=== PATIENT | male | born 1965 | race Caucasian/White ===

== ENCOUNTER 2019-07-28 12:04 | Outpatient (CLI) | payer MEDICARE, MEDICAID, SELFPAY ==
--- NOTE | 2019-07-28 12:18 | USCV_ITS ---
Christiano Loo Age: 54 Gender: M : 1965 Exam Date: 07/28/2019 12:41 Ordering Phys: Abril Perry Technologist: Jefry Paz Exam Location: [facility] [place] Indication: Bradycardia Rhythm: Sinus Patient History: Chest pain, Hypertension, Hyperlipidemia Cardiac Medications: Aspirin, Non-statin lipid lowering agent(s), ELENA Inhibitor Medications in past 24 hours: NONE Contrast: Stress Results Protocol: Obdulio Total dose(mL): Exercise Duration (min:sec): 09:00 METS: 10.2 Resting HR: 49 Resting BP: 126 / 81 Peak HR: 151 Peak BP: 170 / 81 Max Predicted HR: 165 92 % Max Predicted HR Target HR: 140 Double Product: 52000 Stress Summary: The patient's target heart rate was achieved The hemodynamic response to exercise was normal BP Response: Normal Reason for Termination: Test terminated after reaching target heart rate (85% max predicted) Cardiac Symptoms: Short of Breath ECG Analysis Resting ECG: Stress ECG: Arrhythmia: MEASUREMENTS (Male/Female) Normal Values FINDINGS Baseline at rest: Normal left ventricular size and ejection fraction, no wall motion abnormality at the baseline. At peak exercise: No wall motion abnormality noted. Augmentation of cavity was good. Recovery: No significant wall motion abnormality noted CONCLUSIONS Echocardiographic portion of the stress test is not suggestive of ischemia. EKG segment will be recommended separately. Law Mackey MD (Electronically Signed) Final Date: 28 July 2019 19:24 S
[2019-07-28 12:32] VITALS: BMI 32.1
--- NOTE | 2019-07-28 12:36 | ECG_ITS ---
NAME OF STUDY: TREADMILL STRESS ECHOCARDIOGRAM INDICATION: Bradycardia EXERCISE DATA: The patient was exercised by Obdulio protocol. Baseline heart rate was 49 beats per minute. Baseline blood pressure was 126/81 millimeters of mercury. Target heart rate was 165 beats per minute. Maximum heart rate achieved was 151, which was 91 % of the target heart rate. Maximum blood pressure was 170/81 millimeters of mercury. Total exercise time was 9 minutes. Maximum METs achieved was 10.2, maximum VO2 was 35.7. The reason for ending the test was maximum effort achieved. The patient complained of shortness of during the stress test, which then resolved at the end of the test. ELECTROCARDIOGRAM: BASELINE: Sinus bradycardia, normal axis, no significant ST-T changes at the baseline noted. EXERCISE: At the peak exercise level, No significant ST-T changes suggestive of ischemia noted. RECOVERY: During the recovery period, heart rate dropped appropriately. No significant ST-T changes in the recovery suggestive of ischemia noted. CONCLUSION: 1. Exercise capacity good. 2. Heart rate response was appropriate. 3. Blood pressure response was appropriate. 4. Symptoms not suggestive of ischemia. 5. Electrocardiogram portion of the stress test was not suggestive of ischemia. 6. Nuclear scan will be documented separately. Electronically Signed On 07-28-2019 14:21:06 STOCK LIFTER by Law Mackey M.D. [email or web address]
[2019-07-28 13:34] VITALS: BP 113/73; PULSE 65
== END 2019-07-28 12:05 | disposition home or self-care (01) ==
LOC: CDL 12:12
PROVIDERS: Family Provider Nurse Practitioner; PCP Nurse Practitioner Family; Visit Provider Internal Medicine Cardiovascular Disease
DX: R00.1 Bradycardia, unspecified (principal)
CPT/HCPCS: 93017; 93350

== ENCOUNTER 2019-11-28 07:00 | Emergency (ER) | payer MEDICARE, MEDICAID, SELFPAY ==
[2019-11-28 07:02] VITALS: BP 114/60; PULSE 61; RESP 18; TEMP 36.7; O2SAT 96; BMI 31.2
[2019-11-28 07:09] VITALS: BP 114/57; PULSE 67; RESP 16; O2SAT 96
--- NOTE | 2019-11-28 07:17 | W.ED.CHESTPA ---
HPI - Chest Pain General: Chief Complaint: Chest Pain Stated Complaint: CP/dizzy/confusion Time Seen by Provider: 11/28/19 07:03 History of Present Illness: HPI narrative: 54-year-old male resents the emergency room complaining of lightheadedness dizziness chest pain and palpitations. 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 He states he really did not get any significant relief after he ceased working. But eventually after about 15 to 20 minutes it resolved spontaneously. At the time he is seen he has no further chest pain and the dizziness has resolved as well. He has noticed over the last week he is a little bit more short of breath when he exerts himself but had not had any chest pain or dizziness during the week. He denies any nausea vomiting or diarrhea or any radiation of the chest pain to his back neck jaw or arms or shoulders. He localizes the chest pain to the center left of his chest. Patient initially told me he had not had any kind of cardiac evaluation in the past however when I reviewed his old chart I find he had a stress test in July and has had a Holter monitor for bradycardia as well. Stress echo done on 07/28/2019 was read as normal. Holter monitor done in September of this year showed frequent PVCs. Associated symptoms: Deny abdominal pain, dyspnea, fever(s), nausea or vomiting Review of Systems Const: Denies: fever(s), chills, body aches, change in appetite, fatigue or malaise ENMT: Denies: throat pain, ear or mastoid pain, nasal discharge or nasal congestion Card: Denies: chest pain, edema, dyspnea on exertion or orthopnea Resp: Denies: dyspnea, productive cough or non-productive cough GI: Denies: abdominal pain, nausea, vomiting, hematemesis, coffee ground emesis, diarrhea, constipation, bloating, hematochezia or melena : Denies: flank pain, dysuria, urinary frequency or urinary urgency Skin/Breast: Denies: rash or pruritus PFS ED PFSH: Medical History Benign essential HTN Bradycardia Fatigue GERD (gastroesophageal reflux disease) Mixed hyperlipidemia Obesity (BMI 30.0-34.9) Palpitations Restless leg syndrome Sleep apnea, obstructive Surgical History Hx of cholecystectomy Family History Denies family history of Anesthesia complication Bleeding disorder Social History Smoking and tobacco status: current some day smoker Alcohol intake: current Alcohol intake frequency: 0-2 Drinks per Day Physical Exam Const: COMMON NORMALS: no acute distress GENERAL APPEARANCE: cooperative and comfortable ORIENTATION/CONSCIOUSNESS: Yes awake, Yes oriented to person, Yes oriented to place and Yes oriented to time HENMT: COMMON NORMALS: normocephalic, atraumatic, hearing grossly normal bilaterally, external ears normal, EAC's normal, TM's normal bilaterally, Normal nasal mucous membranes and turbinates present, moist oral mucous membranes and oropharynx normal HEAD & SCALP: normocephalic and atraumatic NOSE: Normal nasal mucous membranes and turbinates present EXTERNAL EAR: Yes external ears normal EXTERNAL AUDITORY CANAL: EAC's normal TYMPANIC MEMBRANE: TM's normal bilaterally Eye: COMMON NORMALS: Equal, round and reactive pupils present, EOMs intact bilaterally, conjunctivae normal and no scleral icterus CONJUNCTIVA: Yes conjunctivae normal PUPIL: Yes Equal, round and reactive pupils present Neck/C-Spine: COMMON NORMALS: full ROM, no lymphadenopathy, supple and no JVD Lymph: LYMPHATIC: no lymphadenopathy noted and no lymphedema noted Resp: COMMON NORMALS: normal respiratory effort, No retractions, No use of accessory muscles and clear to auscultation bilaterally AUSCULTATION: clear to auscultation bilaterally Cardio: COMMON NORMALS: no JVD, regular rate, regular rhythm and No murmurs present (Cardio) RATE: regular rate RHYTHM: regular rhythm GI: COMMON NORMALS: Soft to palpation and No hepatosplenomegaly present AUSCULTATION: Yes normoactive bowel sounds PALPATION: Yes Soft to palpation, No Tenderness to palpation present (GI), No Guarding due to palpation present (GI) and Yes No hepatosplenomegaly present Extremity: COMMON NORMALS: normal to inspection, capillary refill normal, no clubbing, cyanosis or edema, no calf tenderness and no pedal edema Neuro: SENSORIUM/ORIENTATION: Yes oriented to person, Yes oriented to place and Yes oriented to time Skin: COMMON NORMALS: no rashes or lesions noted GENERAL SKIN EXAM: no rashes or lesions noted Course Vital Signs: Vital signs: Vital Signs Temperature 98.1 F 11/28/19 07:02 Pulse Rate 63 11/28/19 10:43 Respiratory Rate 18 11/28/19 10:43 Blood Pressure 101/59 11/28/19 10:43 Pulse Oximetry 98 11/28/19 10:43 MDM - Chest Pain MDM Narrative: Medical decision making narrative: Troponin is negative will discharge home on PPI has any recurrent symptoms recheck follow-up with your doctor within 1 week. Also need to review blood pressure and blood pressure meds with your physician on follow-up discussed this with the patient Lab Data: Labs: Lab Results 11/28/19 11/28/19 11/28/19 Range/Units 07:20 07:20 07:20 WBC 5.9 (4.0-10.0) 10^3/ uL RBC 4.40 (4.1-5.3) 10^6/u L Hgb 13.5 (11.7-16.6) g/dL Hct 40.2 L (42.0-52.0) % MCV 91.4 (80-94) fL MCH 30.7 (28.0-34.0) pg MCHC 33.6 (30.0-36.0) g/dL RDW 12.3 (12.1-15.1) % Plt Count 272 (130-400) 10^3/c mm MPV 10.1 (7.4-10.4) fL Neut % (Auto) 51.8 % Lymph % (Auto) 32.5 % [place] % (Auto) 8.5 % Eos % (Auto) 5.9 % Baso % (Auto) 1.0 % Neut # (Auto) 3.1 (1.8-7.7) 10^3/u L Lymph # (Auto) 1.9 (0.8-4.8) 10^3/u L [place] # (Auto) 0.5 (0.2-0.9) 10^3/u L Eos # (Auto) 0.4 (0.0-0.8) 10^3/u L Baso # (Auto) 0.1 (0.0-0.1) 10^3/u L Nucleated RBC % (a uto) 0 % Nucleated RBCs # 0.0 /100WBC Sodium 139 (136-145) mmol/L Potassium 3.9 (3.5-5.1) mmol/L Chloride 101 (98-107) mmol/L Carbon Dioxide 22 (22-29) mmol/L Anion Gap 19.9 H (5-19) BUN 21 H (6-20) mg/dL Creatinine 1.3 H (0.7-1.2) mg/dL GFR Calculation 57.3 L (90-130) mL/min Glucose 101 (65-115) mg/dL Calculated Osmolal ity 285 (285-295) mOsm/k g Calcium 10.6 H (8.5-10.5) mg/dL Total Bilirubin 0.3 (0.15-1.2) mg/dL AST 19 (0-40) U/L ALT 13 (0-41) U/L Alkaline Phosphata se 59 (40-130) IU/L Troponin T Baselin e 6 (0-15) ng/mL Troponin T 120 Min srinivas (0-15) ng/mL Delta Troponin T (0-10) ABS# Total Protein 7.5 (6.6-8.7) g/dL Albumin 4.4 (3.5-5.2) g/dL Globulin 3.1 (1.3-4.6) g/dL Lipase 46 (13-60) U/L / Range/Units 09:26 WBC (4.0-10.0) 10^3/ uL RBC (4.1-5.3) 10^6/u L Hgb (11.7-16.6) g/dL Hct (42.0-52.0) % MCV (80-94) fL MCH (28.0-34.0) pg MCHC (30.0-36.0) g/dL RDW (12.1-15.1) % Plt Count (130-400) 10^3/c mm MPV (7.4-10.4) fL Neut % (Auto) % Lymph % (Auto) % [place] % (Auto) % Eos % (Auto) % Baso % (Auto) % Neut # (Auto) (1.8-7.7) 10^3/u L Lymph # (Auto) (0.8-4.8) 10^3/u L [place] # (Auto) (0.2-0.9) 10^3/u L Eos # (Auto) (0.0-0.8) 10^3/u L Baso # (Auto) (0.0-0.1) 10^3/u L Nucleated RBC % (a uto) % Nucleated RBCs # /100WBC Sodium (136-145) mmol/L Potassium (3.5-5.1) mmol/L Chloride (98-107) mmol/L Carbon Dioxide (22-29) mmol/L Anion Gap (5-19) BUN (6-20) mg/dL Creatinine (0.7-1.2) mg/dL GFR Calculation (90-130) mL/min Glucose (65-115) mg/dL Calculated Osmolal ity (285-295) mOsm/k g Calcium (8.5-10.5) mg/dL Total Bilirubin (0.15-1.2) mg/dL AST (0-40) U/L ALT (0-41) U/L Alkaline Phosphata se (40-130) IU/L Troponin T Baselin e (0-15) ng/mL Troponin T 120 Min srinivas 6.00 (0-15) ng/mL Delta Troponin T 0 (0-10) ABS# Total Protein (6.6-8.7) g/dL Albumin (3.5-5.2) g/dL Globulin (1.3-4.6) g/dL Lipase (13-60) U/L Discharge Plan Discharge Patient Disposition: Home, Self-Care Clinical Impression: Atypical chest pain, Benign essential HTN Condition: Stable Prescriptions: Changed esomeprazole magnesium 40 mg capsule,delayed release(DR/EC) 40 mg PO BID 14 Days Qty: 28 RF: 0 No Action lisinopril 5 mg tablet 5 mg PO DAILY RF: 0 ibuprofen 800 mg tablet 800 mg PO Q8H PRN (Reason: pain) RF: 0 aspirin [Aspirin Low Dose] 81 mg tablet,delayed release (DR/EC) 81 mg PO DAILY RF: 0 diphenhydramine HCl 1 % cream See Rx Instructions .ROUTE .COMPLEX PRN (Reason: Itching) RF: 0 fenofibrate 160 mg tablet 160 mg PO DAILY RF: 0 tizanidine 4 mg capsule 4 mg PO BEDTIME PRN (Reason: Muscle Spasm) RF: 0 trazodone 50 mg tablet 100 mg PO BEDTIME RF: 0 cetirizine [Zyrtec] 10 mg tablet 10 mg PO DAILY RF: 0 Multiple Vitamins Tablet 1 tab PO DAILY RF: 0 baclofen 10 mg Tablet 10 mg PO TID RF: 0 ferrous sulfate 325 mg (65 mg iron) Tablet 325 mg PO DAILY RF: 0 gabapentin 300 mg Capsule 300 mg PO DAILY RF: 0 Discharge Orders: Discharge Order (Routine); Ordered 11/28/19 Ordered By: Rayshawn Jarrell Referrals: Lisbet Mcgill FNP [Primary Care Provider] - Discharge Diet: Advance as tolerated Discharge Activity: Limit activity as instructed Stand Alone Forms: Work/School Release Discharge Date/Time: 11/28/19 10:44 Coding Level of Care Code ED Assessment Specialist for Nory Fwd Exam Comprehensive
--- NOTE | 2019-11-28 07:26 | ECG_ITS ---
Measurements Intervals [place] Rate: 58 P: 46 NE: 179 QRS: 43 QRSD: 89 T: 43 QT: 407 QTc: 403 SINUS BRADYCARDIA Compared to ECG 06/25/2016 23:03:29 No significant changes Electronically Signed On 11-28-2019 13:05:20 CDT by Gita Britton M.D. [email or web address]
--- NOTE | 2019-11-28 07:26 | XRR_ITS ---
PROCEDURE INFORMATION: Exam: XR Chest, 1 View Exam date and time: 11/28/2019 7:33 AM Age: 54 years old Clinical indication: Chest pain; Additional info: Dyspnea/cough TECHNIQUE: Imaging protocol: XR of the chest Views: 1 view. COMPARISON: CR Chest 1 [place] [id number] 06/25/2016 8:02 PM FINDINGS: Lungs: Hyperinflation and mild interstitial prominence. No acute infiltrate. 9 mm nodular density overlying the right perihilar region, presumably representing a vessel en face. Pleural space: No pleural effusion. Heart/Mediastinum: No cardiomegaly. Bones/joints: Dextroscoliosis. XR/XR chest 1V portable [id number] IMPRESSION: Hyperinflation and mild interstitial prominence.
[2019-11-28 07:38] LABS: Basophils # 0.1 10^3/uL (0.0-0.1); Eosinophils # 0.4 10^3/uL (0.0-0.8); Eosinophils % 5.9 %; Hematocrit 40.2 % (42.0-52.0); Hemoglobin 13.5 g/dL (11.7-16.6); Lymphocytes # 1.9 10^3/uL (0.8-4.8); Lymphocytes % 32.5 %; Mean Corpuscular HGB Conc 33.6 g/dL (30.0-36.0); Mean Corpuscular Hemoglobin 30.7 pg (28.0-34.0); Mean Corpuscular Volume 91.4 fL (80-94); Mean Platelet Volume 10.1 fL (7.4-10.4); Monocytes # 0.5 10^3/uL (0.2-0.9); Monocytes % 8.5 %; Neutrophils # 3.1 10^3/uL (1.8-7.7); Neutrophils % 51.8 %; Nucleated Red Blood Cells % 0 %; Platelet Count 272 10^3/cmm (130-400); Red Cell Distribution Width 12.3 % (12.1-15.1); White Blood Count 5.9 10^3/uL (4.0-10.0)
[2019-11-28 07:52] LABS: Alanine Aminotransferase 13 U/L (0-41); Albumin Level 4.4 g/dL (3.5-5.2); Alkaline Phosphatase 59 IU/L (40-130); Anion Gap 19.9 (5-19); Aspartate Amino Transferase 19 U/L (0-40); Blood Urea Nitrogen 21 mg/dL (6-20); Calcium 10.6 mg/dL (8.5-10.5); Carbon Dioxide 22 mmol/L (22-29); Chloride 101 mmol/L (98-107); Globulin 3.1 g/dL (1.3-4.6); Glomerular Filtration Rate 57.3 mL/min (90-130); Glucose 101 mg/dL (65-115); Lipase 46 U/L (13-60); Osmolality Calculated 285 mOsm/kg (285-295); Potassium 3.9 mmol/L (3.5-5.1); Sodium 139 mmol/L (136-145); Total Bilirubin 0.3 mg/dL (0.15-1.2); Total Protein 7.5 g/dL (6.6-8.7)
[2019-11-28 07:55] LABS: Troponin(5th) Baseline 6 ng/mL (0-15)
[2019-11-28 08:05] VITALS: BP 120/55; PULSE 54; RESP 15; O2SAT 95
[2019-11-28 09:10] VITALS: BP 135/49; PULSE 55; RESP 15; O2SAT 98
[2019-11-28 09:48] LABS: Troponin 5 2HR Delta 0 ABS# (0-10)
[2019-11-28 10:43] VITALS: BP 101/59; PULSE 63; RESP 18; O2SAT 98
== END 2019-11-28 10:44 | disposition home or self-care (01) ==
PROVIDERS: Emergency Provider Family Medicine; PCP Nurse Practitioner Family
DX: R07.89 Other chest pain (principal); I10 Essential (primary) hypertension; Z79.82 Long term (current) use of aspirin; K21.9 Gastro-esophageal reflux disease without esophagitis; E78.2 Mixed hyperlipidemia; F17.210 Nicotine dependence, cigarettes, uncomplicated
CPT/HCPCS: 12345; 71045; 80053; 83690; 84484; 85025; 93005; 99283

== ENCOUNTER 2019-12-22 09:44 | Outpatient (CLI) | payer MEDICARE, MEDICAID, SELFPAY ==
[2019-12-22 10:30] LABS: Glucose Fasting 109 mg/dL (74-109)
[2019-12-22 11:21] LABS: Glucose 1 Hour 135 mg/dL
[2019-12-22 13:31] LABS: Glucose 3 Hour 88 mg/dL
[2019-12-23 03:09] LABS: Glucose 2 Hour 99 mg/dL
== END 2019-12-22 09:45 | disposition home or self-care (01) ==
LOC: LAB 09:45
PROVIDERS: PCP Nurse Practitioner Family; Visit Provider Nurse Practitioner Family
DX: R42 Dizziness and giddiness (principal); H53.9 Unspecified visual disturbance; R51 Headache
CPT/HCPCS: 36415; 70450; 82951; 82952

== ENCOUNTER 2019-12-22 13:04 | Outpatient (CLI) | payer MEDICARE, MEDICAID, SELFPAY ==
--- NOTE | 2019-12-22 13:11 | CT_ITS ---
WS: [id number] CT HEAD TECHNIQUE: Noncontrast CT of the head obtained from the skullbase to the vertex. CLINICAL INFORMATION: VISION LOSS, BINOCULAR; HEADACHE ACUTE COMPARISON: June 25, 2016 DLP: 925.[address] scans at [facility] use at least one of these dose optimization techniques: automat ed exposure control; mA and/or kV adjustment per patient size (includes targeted exams where dose is matched to clinical indication); or iterative reconstruction. FINDINGS: No evidence of intracranial hemorrhage or mass effect. Ventricular system and basal cisterns are chavarria nt. Minimal small vessel changes with mild parenchymal volume loss. No extra-axial fluid collections. No evidence of mass or mass effect. Normal mart-white differentiation. Paranasal sinuses and mastoid air cells are well aerated. .Normal visualized soft tissues. CT/CT head wo con* [id number] IMPRESSION: 1. No evidence of intracranial hemorrhage or mass effect. 2. Mild small vessel changes with mild parenchymal volume loss. 3. No acute intracranial findings.
== END 2019-12-22 13:05 | disposition home or self-care (01) ==
LOC: RADWPI 13:10
PROVIDERS: Family Provider Nurse Practitioner Family; PCP Nurse Practitioner Family; Visit Provider Nurse Practitioner Family
DX: R42 Dizziness and giddiness (principal); H53.9 Unspecified visual disturbance; R51 Headache
CPT/HCPCS: 70450

== ENCOUNTER 2021-02-09 20:00 | Outpatient (CLI) | payer MEDICARE, MEDICAID, SELFPAY | END 2021-02-09 20:01 | disposition home or self-care (01) | LOC: SLEEP 02-10 09:42 | PROVIDERS: Family Provider Nurse Practitioner Family; PCP Nurse Practitioner Family; Visit Provider Nurse Practitioner Family | DX: G47.33 Obstructive sleep apnea (adult) (pediatric) (principal) | CPT/HCPCS: 95810 ==